=== PATIENT | female | born 1995 | race Caucasian/White ===

== ENCOUNTER 2017-09-29 10:06 | Emergency (ER) | payer OTHER ==
--- NOTE | 2017-09-29 12:38 | UC ---
Lower Extremity/Ankle HPI - HPI Summary HPI Summary: Pt presents with c/o right great toe pain and subungual hematoma s/p dropping laptop on toe 1 day ago, 09/28/17. - History of Current Complaint Chief Complaint: UCLowerExtremity Stated Complaint: RIGHT FOOT COMPLAINT Time Seen by Provider: 09/29/17 12:13 Hx Obtained From: Patient Hx Last Menstrual Period: mid-jul, pt on B/C that gives her a menses Q 3mos ?: No Onset/Duration: Sudden Onset, Still Present, Worse Since - onset Severity Initially: Moderate Severity Currently: Mild Pain Intensity: 4 Aggravating Factor(s): Standing, Ambulation Alleviating Factor(s): Rest, Elevation Able to Bear Weight: Yes - Risk Factors DVT Risk Factors: Oral Contraceptives - Allergies/Home Medications Allergies/Adverse Reactions: Allergies Allergy/AdvReac Type Severity Reaction Status Date / Time No Known Allergies Allergy Verified 09/29/17 11:55 Home Medications: Home Medications Ibuprofen TAB* [Advil TAB*] 400 mg PO Q6H PRN 09/29/17 [History Confirmed ] Quesnic 1 tab PO BEDTIME 09/29/17 [History Confirmed 09/29/17] PMH/Surg Hx/FS Hx/Imm Hx Previously Healthy: Yes - Surgical History Surgical History: None - Family History Known Family History: Positive: Cardiac Disease - Social History Occupation: Employed Full-time Lives: With Family Alcohol Use: Occasionally Substance Use Type: None Smoking Status (MU): Never Smoked Tobacco Review of Systems Constitutional: Negative Skin: Bruising - right great toe, subungual Eyes: Negative ENT: Negative Respiratory: Negative Cardiovascular: Negative Gastrointestinal: Negative Genitourinary: Negative Motor: Decreased ROM - right great toe Neurovascular: Negative Musculoskeletal: Arthralgia - right great toe, Edema, Myalgia Neurological: Negative Psychological: Negative Is Patient Immunocompromised?: No All Other Systems Reviewed And Are Negative: Yes Physical Exam Triage Information Reviewed: Yes Appearance: Well-Appearing Vital Signs: Initial Vital Signs Temp 98 F 09/29/17 11:50 Pulse 87 09/29/17 11:50 Resp 16 09/29/17 11:50 BP 140/72 09/29/17 11:50 Pulse Ox 100 09/29/17 11:50 Vital Signs Reviewed: Yes Eye Exam: Normal ENT: Positive: Hearing grossly normal Dental Exam: Normal Neck exam: Normal Respiratory Exam: Normal Musculoskeletal Exam: Other Musculoskeletal: Positive: ROM Limited @ - right great toe, secondary to pain, Edema @ - right great toe, generalized Neurological Exam: Normal Psychological Exam: Normal Skin Exam: Other - right great toe subugual hematoma Procedures - Incision and Drainage Site: right great toe, subungual hematoma Instrument(s): Other - cuatery tool Diagnostics - Radiology No standard instances Radiology Interpretation Completed By: Radiologist - IMPRESSION: NO EVIDENCE FOR FRACTURE Lower Extremity Course/Dx - Course Course Of Treatment: rigth great toe subungual hematoma, drained withh cautery tool, pt tolerated well. moderate amount of blood drained - Differential Dx/Diagnosis Differential Diagnosis/HQI/PQRI: Contusion, Subungual Hematoma Provider Diagnoses: subungual hematoma right great toe. contusion right great toe Discharge - Sign-Out/Discharge Documenting (check all that apply): Discharge - Discharge Plan Condition: Stable Disposition: HOME Patient Education Materials: Subungual Hematoma (ED) Referrals: Jada Dominguez MD [Primary Care Provider] - If Needed Additional Instructions: IMPRESSION: NO EVIDENCE FOR FRACTURE - Billing Disposition and Condition Condition: STABLE Disposition: HOME
--- NOTE | 2017-09-29 12:49 | RAD ---
INDICATION: Right great toe injury. TECHNIQUE: 3 views of the right great toe were obtained. FINDINGS: There is diffuse soft tissue swelling. The bones are normal alignment. No fracture is seen. IMPRESSION: NO EVIDENCE FOR FRACTURE.
== END 2017-09-29 13:05 | disposition home or self-care (01) ==
LOC: UCCORT 10:06
DX: S90.111A Contusion of right great toe without damage to nail, initial encounter (principal); W20.8XXA Other cause of strike by thrown, projected or falling object, initial encounter; Y93.9 Activity, unspecified; Y92.9 Unspecified place or not applicable
CPT/HCPCS: 11740; 99201; G0463